=== PATIENT | female | born 1935 | race Caucasian/White ===

== ENCOUNTER → 2019-07-09 12:36 | Outpatient (CLI) | payer MEDICARE, SELFPAY ==
--- NOTE | ~2019-07-09 | XR_ITS ---
EXAMINATION: XR chest 2V DATE: 07/09/2019 12:50 INDICATION: Unspecified dementia without behavioral disturbance. TECHNIQUE: Frontal and lateral views of the chest were obtained. COMPARISON: Chest 2 views 07/01/2012 FINDINGS: The chest demonstrates clear lungs without pneumonia, pleural effusion, or pneumothorax. Th e heart size is normal. There are changes of posterior fusion procedure in lumbar spine. There are ch anges of ventral hernia repair. IMPRESSION: 1. No acute cardiopulmonary disease. Reviewed, dictated and finalized at location A. [employer]CHITECT
== END ==
PROVIDERS: PCP Family Medicine; Visit Provider Physician Assistant Medical
DX: F03.90 Unspecified dementia, unspecified severity, without behavioral disturbance, psychotic disturbance, mood disturbance, and anxiety (principal)
CPT/HCPCS: 71046

== ENCOUNTER → 2020-11-30 13:16 | Outpatient (CLI) | payer MEDICARE, SELFPAY ==
--- NOTE | ~2020-11-30 | DEXA_ITS ---
Bone Density Report Name: Shayy Haji Age: 85 Sex: Female Ethnicity: White Date of : 1935 Indication: osteopenia; height loss; postmenopausal Referring Provider: LINCOLN ESCOBAR Study: Bone densitometry was performed. Exam Date: November 30, 2020 Accession number: [id number] Bone Density: Region BMD T-score Z-score Classification AP Spine (L1, L2) 1.040 0.6 3.2 Normal Femoral Neck (Left) 0.563 -2.6 -0.1 Osteoporosis Total Hip (Left) 0.757 -1.5 0.8 Osteopenia Femoral Neck (Right) 0.645 -1.8 0.7 Osteopenia Total Hip (Right) 0.842 -0.8 1.5 Normal Total Hip Mean 0.800 -1.2 1.2 Osteopenia World Health Organization criteria for BMD impression classify patients as: Normal (T-score at or above -1.0), Osteopenia (T-score between -1.0 and -2.5), or Osteoporosis (T-score at or below -2.5). 10-year Fracture Risk: FRAX not reported because: Some T-score for Spine Total or Hip Total or Femoral Neck at or below -2.5 Previous Exams: Region Exam Age BMD T-score BMD Change BMD Change Date g/cm2 vs Baseline vs Previous AP Spine(L1, L2) 11/30/2020 85 1.040 0.6 0.111* 0.063* 05/14/2018 82 0.977 0.0 0.047* 0.019 03/12/2016 80 0.958 -0.2 0.028* -0.042* 07/01/2012 76 1.000 0.2 0.070* 0.070* 06/21/2008 72 0.930 -0.4 Total Hip(Left) 11/30/2020 85 0.757 -1.5 -0.110* 0.026 05/14/2018 82 0.731 -1.7 -0.136* -0.058* 03/12/2016 80 0.789 -1.3 -0.078* -0.067* 07/01/2012 76 0.856 -0.7 -0.011 -0.011 06/21/2008 72 0.867 -0.6 Total Hip(Right) 11/30/2020 85 0.842 -0.8 -0.046* 0.004 05/14/2018 82 0.838 -0.8 -0.050* -0.058* 03/12/2016 80 0.896 -0.4 0.008 -0.076* 07/01/2012 76 0.972 0.2 0.083* 0.083* 06/21/2008 72 0.889 -0.4 *Denotes significance at 95% confidence level, LSC for AP Spine = 0.022 g/cm2, LSC for Total Hip = 0.027 g/cm2 Clinical Information Provided by Patient: Has used the following medications: Vitamin D Patient maximum height was 60 Menopause Age: 51 Does not regularly consume dairy products Drinks caffeinated beverages Onset of menses at age 13 Number of children 6 Impression: The patient has osteoporosis, based on the Left Femoral Neck T-score. No significant bone loss
== END ==
PROVIDERS: PCP Family Medicine; Visit Provider Family Medicine
DX: M81.0 Age-related osteoporosis without current pathological fracture (principal); M85.851 Other specified disorders of bone density and structure, right thigh; M85.852 Other specified disorders of bone density and structure, left thigh
CPT/HCPCS: 77080

== ENCOUNTER → 2020-12-13 15:33 | Outpatient (CLI) | payer MEDICARE, SELFPAY ==
--- NOTE | ~2020-12-13 | MM_ITS ---
EXAMINATION: MM screening [facility] BI w stan HISTORY: Screening TECHNIQUE: Craniocaudal and mediolateral oblique 3-D tomosynthesis images were obtained and synthetic 2-D images were generated. CAD analysis was submitted and interpreted. COMPARISON: Comparison to multiple prior studies sequentially, with oldest reviewed study dated 04/26. BREAST PARENCHYMAL COMPOSITION: There are scattered areas of fibroglandular density. FINDINGS: There is no evidence of suspicious mass, calcification, or architectural distortion to sugg est malignancy in either breast. There has been no suspicious interval change. IMPRESSION: 1. No mammographic evidence of malignancy. 2. Recommend routine screening mammography in one year. BI-RADS Category 1: Negative Reviewed, dictated and finalized at location A.
== END ==
PROVIDERS: PCP Family Medicine; Visit Provider Physician Assistant
DX: Z12.31 Encounter for screening mammogram for malignant neoplasm of breast (principal)
CPT/HCPCS: 77063; 77067

== ENCOUNTER 2021-10-26 09:55 | Emergency (ER) | payer MEDICARE, SELFPAY ==
--- NOTE | ~2021-10-26 | CT_ITS ---
EXAMINATION: CT brain wo con DATE: 10/26/2021 11:07 INDICATION: Confusion TECHNIQUE: Computed tomography (CT) of the head was performed without intravenous contrast. The dose- length product was 605.33 mGy-cm. Automated exposure control and iterative reconstruction technique w ere employed. COMPARISON: None FINDINGS: No acute intracranial hemorrhage, infarction, mass or mass effect. No ventriculomegaly or m idline shift. Basilar cisterns are patent. No ventriculomegaly or midline shift. There is intracrania l atherosclerosis. Paranasal sinuses and mastoids are pneumatized. No depressed skull fractures. Stru ctures of the posterior fossa to are unremarkable. There is minimal intracranial atherosclerosis. The re are scattered mild periventricular and subcortical white matter changes, most likely related to sm all vessel ischemic disease (microangiopathy). IMPRESSION: 1. No acute intracranial abnormality. Reviewed, dictated and finalized at location A.
--- NOTE | ~2021-10-26 | XR_ITS ---
EXAMINATION: XR chest 2V DATE: 10/26/2021 10:29 INDICATION: Weakness. Woozy feeling. TECHNIQUE: frontal and lateral views of the chest were obtained. COMPARISON: Chest radiograph dated 07/09/2019 FINDINGS: The lungs remain clear with no focal airspace opacities, pulmonary edema, pleural effusion or pneumot horax. The cardiomediastinal silhouette is within normal limits for AP technique. Cholecystectomy cli ps in the right upper quadrant and metallic coils suggesting prior ventral hernia repair at the mid a bdomen. Moderate thoracic spondylosis. IMPRESSION: 1. No acute cardiopulmonary disease. Reviewed, dictated and finalized at location B.
[2021-10-26 10:11] VITALS: BP 187/54; PULSE 74; RESP 20; TEMP 36.3; O2SAT 98
--- NOTE | 2021-10-26 10:11 | ECG_ITS ---
Measurements Intervals [place] Rate: 67 P: -27 [place]: 131 QRS: -13 QRSD: 97 T: 16 QT: 412 QTc: 437 Interpretive Statements SINUS RHYTHM WITH MARKED SINUS ARRHYTHMIA MODERATE VOLTAGE CRITERIA FOR LVH, CONSIDER NORMAL VARIANT [MEETS CRITERIA IN ONE OF: R(aVL), S(V1), R(V5), R(V5/V6)+S(V1)] NONSPECIFIC ST ABNORMALITY BASELINE ARTIFACT BORDERLINE ECG NO PREVIOUS ECG AVAILABLE FOR COMPARISON Electronically Signed On 10-26-2021 17:49:25 CDT by Terry Patterson M.D.
[2021-10-26 10:19] VITALS: PULSE 64
[2021-10-26 10:26] LABS: Basophils Absolute Auto 0.1 K/mm3 (0.0-0.1); Basophils Percent Auto 0.8 % (0.2-1.2); Eosinophils Absolute Auto 0.1 K/mm3 (0-0.3); Eosinophils Percent Auto 1.4 % (0-4.4); Hematocrit 41.9 % (37.0-47.0); Hemoglobin 13.3 g/dL (12.0-15.0); Immature Granulocyte Absolute 0.02 K/mm3 (0.00-0.031); Immature Granulocyte Percent A 0.3 % (0-0.5); Lymphocytes Absolute Auto 2.03 K/mm3 (0.9-3.2); Lymphocytes Percent Auto 30.9 % (18.3-44.2); Mean Corpuscular HGB Conc 31.7 g/dl (32-36); Mean Corpuscular Volume 94.4 fl (80-100); Mean Platelet Volume 10.9 fl (7.4-10.4); Monocytes Absolute Auto 0.4 K/mm3 (0.1-0.6); Monocytes Percent Auto 6.4 % (2.6-8.5); Neutrophils Percent Auto 60.2 % (45.5-73.1); Platelet Count Result 289 k/mm3 (150-375); Red Blood Count 4.44 M/mm3 (4.2-5.4); White Blood Count 6.6 K/mm3 (4.5-10.0)
--- NOTE | 2021-10-26 10:53 | ED.WEAKNESS ---
HPI - Weakness General Chief complaint: Weakness Stated complaint: FATIGUED, MEMORY LOSS Time Seen by Provider: 10/26/21 10:26 History of Present Illness HPI Narrative: Pt presents with an episode of confusion and generalized weakness this morning that lasted about 30-40 minutes and resolved. Pt feels fine now. Pt denies CP or SOB or dysuria or frequency. Related Data Home Medications Medication Instructions Recorded Confirmed ascorbic acid (vitamin C) 1,000 mg 1,000 mg PO Q12H 06/30/19 11/24/20 tablet,extended release aspirin-caffeine 400 mg-32 mg 1 tablet PO Q6H PRN 06/30/19 11/24/20 tablet (Anacin) calcium carb 300 mg-D3 800 1 tablet PO DAILY 06/30/19 11/24/20 unit-mag ox 25 mg-endoscopy registered nurse 0.5 mg-yonis-Zn tablet (Caltrate + D3 Plus Minerals) famotidine 20 mg tablet (Pepcid) 20 mg PO DAILY 06/30/19 11/24/20 vitamin B complex (B 1 tablet PO DAILY 06/30/19 11/24/20 Complex-Vitamin B12 tablet) irbesartan 300 mg tablet 300 mg PO DAILY 09/16/20 11/24/20 spironolactone 25 mg tablet 25 mg PO DAILY 07/03/21 Allergies Allergy/AdvReac Type Severity Reaction Status Date / Time NKDA Allergy Unknown unkown Uncoded 11/24/20 13:13 Review of Systems Review of Systems: All systems reviewed & are unremarkable except as noted in HPI and below PMFSH Past Medical History Medical History Bilateral primary osteoarthritis of hip Bilateral primary osteoarthritis of knee (10/30/18) Cystocele Inconclusive mammogram due to dense breasts (05/14/18) Nonrheumatic aortic (valve) insufficiency Normal colonoscopy 2011 Normal nuclear stress test 2009 Peripheral neuropathy Sensory problems with limbs Spinal stenosis, lumbar region, with neurogenic claudication Family History Family History Father Diabetes mellitus Sibling Diabetes mellitus Carcinoma of colon Mother Diabetes mellitus Other Family history of glaucoma Social History Social History Alcohol intake: never Exam Const: General: healthy appearing, no acute distress and alert Nutritional Appearance: well nourished Orientation/consciousness: patient oriented x3 Limitations: no limitations HENMT: Head: normal to inspection Mouth: Yes Normal oral and palatal mucosa present Eyes: Conjunctivae: conjunctivae normal Pupils: Equal, round and reactive pupils present EOM: EOMs intact bilaterally Neck: Neck: normal visual inspection, no lymphadenopathy and no meningeal signs Chest: Chest palpation & inspection: normal inspection of the chest Resp: Effort & Inspection: normal respiratory effort Auscultation: clear to auscultation bilaterally Cardio: Rate: regular rate Rhythm: regular rhythm GI: GI Palp: Yes Soft to palpation Auscultation: normal bowel sounds Back/Spine/Pelvis: Back: no CVA tenderness Skin: General skin exam: normal color Rashes: no rashes Wounds: no wounds Neuro: General: patient oriented x3, moves all extremities, no meningeal signs, no focal motor deficits and CN's II-XI intact bilaterally Cranial nerves: Yes Nystagmus not present Speech: normal speech Gait exam (Neuro): Normal gait present Extrem: General: normal to inspection and no clubbing, cyanosis or edema Psych: Mental Status: mental status grossly normal Affect: normal affect Attitude: cooperative Course Vital Signs Vital signs: Vital Signs Temperature 97.4 F L 10/26/21 10:11 Pulse Rate 74 10/26/21 10:11 Respiratory Rate 20 10/26/21 10:11 Blood Pressure 187/54 H 10/26/21 10:11 Pulse Oximetry 98 10/26/21 10:11 Temperature 97.4 F L 10/26/21 10:11 Pulse Rate 65 10/26/21 13:49 Respiratory Rate 17 10/26/21 13:49 Blood Pressure 153/72 H 10/26/21 13:49 Pulse Oximetry 99 10/26/21 13:49 MDM - Weakness Lab Data Result diagrams:
[2021-10-26 11:12] LABS: Alanine Aminotransferase 15 U/L (6-35); Alkaline Phosphatase 76 U/L (38-126); Anion Gap 4 mmol/L (8-16); Aspartate Amino Transferase 38 U/L (14-36); Bilirubin,Total 0.5 mg/dL (0.2-1.3); Blood Urea Nitrogen 17 mg/dL (7-17); Calcium 8.9 mg/dL (8.4-10.2); Carbon Dioxide 30 mmol/L (22-30); Chloride 104 mmol/L (98-107); Estimated CRCL calculation 45 ml/min; Estimated Glomerular Filt Rate > 60; Glucose 116 mg/dL (65-110); Potassium 4.1 mmol/L (3.4-5.0); Sodium 138 mmol/L (137-145)
[2021-10-26 11:24] LABS: Troponin I < 0.012 ng/mL (0.000-0.034)
--- NOTE | 2021-10-26 11:34 | PC.NURSE ---
Patient walked to bathroom with assistance and is unable to give urine sample at this time, will attempt again later
[2021-10-26 11:35] VITALS: BP 151/53; PULSE 58; RESP 18; O2SAT 99
[2021-10-26 12:18] LABS: Appearance Urine Cloudy (Clear); Bilirubin Urine Negative (Negative); Blood Urine 1+ (Negative); Color Urine Yellow (Yellow); Glucose Urine UA Negative (Negative); Ketones Urine Negative (Negative); Leukocyte Esterase Ur 1+ LEU/UL (Negative); Nitrate Urine Positive (Negative); Protein Urine 1+ mg/dL (Negative); Specific Grav Ur 1.025 (1.001-1.035); Urobilinogen Urine 0.2 mg/dL (<2.0)
[2021-10-26 12:28] LABS: Bacteria Urine Trace /hpf; Mucus Urine Rare /lpf; Squamous Epithelial Cell Urine Many /hpf (Few); WBC Urine 0-3 /hpf
[2021-10-26 12:32] LABS: Add Urine Microscopic? YES
[2021-10-26 13:49] VITALS: BP 153/72; PULSE 65; RESP 17; O2SAT 99
== END 2021-10-26 14:02 | disposition home or self-care (01) ==
PROVIDERS: Emergency Provider Emergency Medicine; PCP Family Medicine
DX: R53.1 Weakness (principal); G62.9 Polyneuropathy, unspecified; M17.0 Bilateral primary osteoarthritis of knee; M16.0 Bilateral primary osteoarthritis of hip; Z79.82 Long term (current) use of aspirin; R94.31 Abnormal electrocardiogram [ECG] [EKG]
CPT/HCPCS: 36415; 70450; 71046; 80053; 81001; 84484; 85025; 93005; 99284

== ENCOUNTER 2021-11-10 12:08 | Outpatient (CLI) | payer MEDICARE, SELFPAY ==
--- NOTE | ~2021-11-10 | US_ITS ---
EXAMINATION: US carotid duplex BI DATE: 11/10/2021 13:15 INDICATION: Transient ischemic attack. TECHNIQUE: Grayscale, color Doppler, and pulsed Doppler images of the cervical carotid arteries were obtained. The degree of vessel stenosis is placed in one of the following categories: normal, <50%, 5 0-69%, >=70% but less than near-occlusion, near-occlusion, or total occlusion. Note that percent sten osis relative to normal distal artery lumen diameter is indirectly measured from velocity measurement s as described by Gulshan, et al. Radiology 2003; 229:340-346. COMPARISON: None. FINDINGS: RIGHT: The right common carotid artery (CCA) peak systolic velocity (PSV) is 62 cm/s. The right internal car otid artery (ICA) PSV is 55 cm/s. The right ICA end-diastolic velocity (EDV) is 10 cm/s. The right IC A/CCA PSV ratio is 0.9. Grayscale and color Doppler images yield an estimate of <50% diameter reducti on from plaque in the ICA. There is antegrade flow in the right vertebral artery. LEFT: The left CCA PSV is 68 cm/s. The left ICA PSV is 59 cm/s. The left ICA EDV is 11 cm/s. The left ICA/C CA PSV ratio is 0.9. Grayscale and color Doppler images yield an estimate of <50% diameter reduction from plaque in the ICA. There is antegrade flow in the left vertebral artery. IMPRESSION: 1. <50% stenosis in the right internal carotid artery. 2. <50% stenosis in the left internal carotid artery. Reviewed, dictated and finalized at location B.
== END 2021-11-10 12:09 | disposition home or self-care (01) ==
PROVIDERS: PCP Family Medicine; Visit Provider Family Medicine
DX: I65.23 Occlusion and stenosis of bilateral carotid arteries (principal)
CPT/HCPCS: 93880

== ENCOUNTER 2022-02-23 12:00 | Outpatient (CLI) | payer MEDICARE, SELFPAY ==
[2022-02-23 13:32] LABS: Anion Gap 14 mmol/L (8-16); Blood Urea Nitrogen 16 mg/dL (7-17); Calcium 9.7 mg/dL (8.4-10.2); Carbon Dioxide 28 mmol/L (22-30); Chloride 101 mmol/L (98-107); Estimated Glomerular Filt Rate > 60; Glucose 116 mg/dL (65-110); Potassium 5.3 mmol/L (3.4-5.0); Sodium 143 mmol/L (137-145)
== END 2022-02-23 12:01 | disposition home or self-care (01) ==
LOC: ANHSURGERY 12:09
PROVIDERS: Anesthesiology; PCP Family Medicine; Visit Provider Obstetrics & Gynecology
DX: Z01.818 Encounter for other preprocedural examination (principal); E11.9 Type 2 diabetes mellitus without complications
CPT/HCPCS: 36415; 80048

== ENCOUNTER 2022-02-28 00:44 | Day surgery (SDC) | payer MEDICARE, SELFPAY ==
[2022-02-21 11:10] VITALS: BMI 29.9
--- NOTE | 2022-02-21 11:22 | PC.NURSE ---
PRE-OP INSTRUCTIONS, PLEASE READ CAREFULLY Report to the Outpatient Waiting Room, entrance under the green pavilion located off [facility], at time _1045_ on date _02/28/22_. OR Time: _1245_. Time changes happen often and if your time is changed the preop area will call you the afternoon before. - You and your visitor will be asked to self-screen and do not enter if you have any COVID symptoms. - Only one visitor and NO children visitors are allowed at this time. - The patient visitor is requested to leave or wait in car when not with patient due to restrictions. - A mask is required within the hospital. Patients may have clear liquids (water, carbonated beverages, clear teas, apple juice) until 3 hours prior to surgery (0945 AM) with a maximum of 20 ounces. - No food from midnight until time of surgery Take the following medications with a SIP of water the morning of surgery: _DULOXETINE_ Medications to discontinue per physician _VITAMINS/SUPPLEMENTS 3 DAYS PRIOR TO SURGERY, Date to take last dose 02/24/22_ Please no make-up, nail bulgarian, hairspray, perfume, deodorant, or body powder the day of surgery. No jewelry (including any body piercings) or valuables the day of surgery, leave them at home. Please take a shower or bath the night before, or the morning of, surgery with an antibacterial soap. Wear comfortable, loose fitting clothing. - Jewelry must be removed prior to entering the operating room. Rings and piercings that are not removed may be cut off. - The hospital will not accept responsibility for valuables. - Please leave all valuables, including medications, at home the day of surgery. If you are going home after surgery, a licensed oil transport driver must drive you home. - NO public transportation without another adult. - We recommend that an adult stay with you for 24 hours following discharge. - We also recommend that you do not drive, make important decision, drink alcoholic beverages, or take any drugs that were not prescribed by your health care provider for at least 24 hours after your discharge time. Follow any additional instructions given to you from your surgeon. If you or anyone in your household have experienced Covid symptoms in the past week, please notify your surgeon or the nurse liaison at the phone number below for possible testing. Telephone instructions given to _PT'S DAUGHTER (TOBI)_and asked if any additional questions and then verbalized understanding. Patient advised to call surgeon office or pre surgery nurse liaison [phone] if any additional questions.
--- NOTE | 2022-02-27 14:22 | WPDANESEPPF ---
Anes - Initial Pre Proc Eval Procedure: Operation Date: 02/28/22 12:45 Proposed Procedures p Hysteroscopy Dilation and Curettage - Ruben Locke MD Date/Time: 02/27/22 14:22 Surgeon: Ruben Locke MD Pre Op Diagnosis: abnormal ultra sound, poss. uterine polyp Patient Data Age: 86 Gender: F Height: 1.52 m Weight: 69.62 kg Allergies Allergy/AdvReac Type Severity Reaction Status Date / Time nitrofurantoin AdvReac Intermediate Confusion Verified 02/28/22 10:50 [From Macrobid] Home Medications Medication Instructions Recorded Confirmed Type ascorbic acid (vitamin C) 1,000 mg 1,000 mg PO Q12H 06/30/19 02/21/22 History tablet,extended release calcium carb 300 mg-D3 800 1 tablet PO DAILY 06/30/19 02/21/22 History unit-mag ox 25 mg-helicopter pilot instructor 0.5 mg-yonis-Zn tablet (Caltrate + D3 Plus Minerals) famotidine 20 mg tablet (Pepcid) 20 mg PO DAILY 06/30/19 02/21/22 History vitamin B complex (B 1 tablet PO DAILY 06/30/19 02/21/22 History Complex-Vitamin B12 tablet) irbesartan 300 mg tablet 300 mg PO DAILY 09/16/20 02/21/22 History spironolactone 25 mg tablet 25 mg PO DAILY 07/03/21 02/21/22 History alendronate 70 mg tablet See Rx Instructions .Route 10/30/21 02/21/22 Rx .COMPLEX #12 tabs cholecalciferol (vitamin D3) 1,250 See Rx Instructions .Route 10/30/21 02/21/22 Rx mcg (50,000 unit) capsule .COMPLEX #6 caps amlodipine 5 mg tablet 5 mg PO DAILY 11/01/21 02/21/22 History metformin 500 mg tablet,extended See Rx Instructions .Route 12/19/21 02/21/22 Rx release 24 hr .COMPLEX #90 tabs duloxetine 30 mg capsule,delayed 60 mg PO .COMPLEX #180 ea 01/04/22 02/21/22 Rx release latanoprost 0.005 % eye drops 1 drp EACH EYE DAILY 01/04/22 02/21/22 History simvastatin 10 mg tablet See Rx Instructions .Route 01/16/22 02/21/22 Rx .COMPLEX #90 tabs ECG: Date of Service: 10/26/21 Procedure(s): CA 12 lead EKG Accession Number(s): [id number] cc: ~ ? Measurements Intervals? [place]? Rate: ? 67 ? P:? -27 UT: ? 131? QRS:? -13 QRSD: ? 97 ? T:? 16 QT: ? 412? QTc:? 437? Interpretive Statements SINUS RHYTHM WITH MARKED SINUS ARRHYTHMIA MODERATE VOLTAGE CRITERIA FOR LVH, CONSIDER NORMAL VARIANT? [MEETS CRITERIA IN ONE OF: R(aVL), S(V1), R(V5), R(V5/V6)+S(V1)] NONSPECIFIC ST ABNORMALITY BASELINE ARTIFACT BORDERLINE ECG NO PREVIOUS ECG AVAILABLE FOR COMPARISON Electronically Signed On 10-26-2021 17:49:25 CDT by Terry Patterson M.D. Patient hx anesthesia problems: none Family hx anesthesia problems: none Results Review: All pre-operative results and documents have been reviewed as part of the pre-operative evaluation. [facility] Past Medical History Medical History (Updated 02/28/22 @ 11:55 by Ruben Locke MD) Aortic regurgitation Bilateral primary osteoarthritis of hip Bilateral primary osteoarthritis of knee (10/30/18) Class 1 obesity with body mass index (BMI) of 31.0 to 31.9 in adult Cystocele Essential hypertension History of abdominal hernia History of spinal stenosis Inconclusive mammogram due to dense breasts (05/14/18) Major depression, recurrent, chronic Microcytic anemia Mild dementia Mixed hyperlipidemia Neuropathy, lumbosacral (radicular) Nonrheumatic aortic (valve) insufficiency Normal colonoscopy 2011 Normal nuclear stress test 2009 Peripheral neuropathy Sensory problems with limbs Spinal stenosis, lumbar region, with neurogenic claudication TIA (transient ischemic attack) Surgical History Surgical History History of cholecystectomy Family History Family History Father D
[2022-02-28] MEDS: ACETAMINOPHEN 500 MG TABLET 1000 MG PO (10:56)
[2022-02-28 11:02] VITALS: BP 159/61; PULSE 65; RESP 16; TEMP 36.4; O2SAT 100
[2022-02-28] MEDS: LACTATED RINGERS 1,000 ML 30 ML IV CONT (11:22)
--- NOTE | 2022-02-28 11:46 | PM.IMHP ---
H&P: HPI History of Present Illness Date/Time: 02/28/22 11:46 Chief Complaint: Abnormal ultrasound. Narrative: 86 y/o with pelvic organ prolapse. She is scheduled for surgery with Dr. Urena. However, a preop pelvic ultrasound showed a thickened endometrial complex. She has no vaginal bleeding. Review of Systems Review of Systems: All systems reviewed & are unremarkable except as noted in HPI and below PMFSH Past Medical History Medical History (Updated 02/28/22 @ 11:55 by Ruben Locke MD) Aortic regurgitation Bilateral primary osteoarthritis of hip Bilateral primary osteoarthritis of knee (10/30/18) Class 1 obesity with body mass index (BMI) of 31.0 to 31.9 in adult Cystocele Essential hypertension History of abdominal hernia History of spinal stenosis Inconclusive mammogram due to dense breasts (05/14/18) Major depression, recurrent, chronic Microcytic anemia Mild dementia Mixed hyperlipidemia Neuropathy, lumbosacral (radicular) Nonrheumatic aortic (valve) insufficiency Normal colonoscopy 2011 Normal nuclear stress test 2009 Peripheral neuropathy Sensory problems with limbs Spinal stenosis, lumbar region, with neurogenic claudication TIA (transient ischemic attack) Surgical History Surgical History History of cholecystectomy Family History Family History Father Diabetes mellitus Sibling Diabetes mellitus Carcinoma of colon Mother Diabetes mellitus Other Family history of glaucoma Social History Social History Smoking status: Never smoker Second hand tobacco smoke exposure: No Alcohol intake: never Substance use: never Substance use type: does not use Living arrangements: alone Spiritual care concerns: No Meds Home Medications and Allergies Home Medications Medication Instructions Recorded Confirmed Type ascorbic acid (vitamin C) 1,000 mg 1,000 mg PO Q12H 06/30/19 02/21/22 History tablet,extended release calcium carb 300 mg-D3 800 1 tablet PO DAILY 06/30/19 02/21/22 History unit-mag ox 25 mg-gyroscope repairer 0.5 mg-yonis-Zn tablet (Caltrate + D3 Plus Minerals) famotidine 20 mg tablet (Pepcid) 20 mg PO DAILY 06/30/19 02/21/22 History vitamin B complex (B 1 tablet PO DAILY 06/30/19 02/21/22 History Complex-Vitamin B12 tablet) irbesartan 300 mg tablet 300 mg PO DAILY 09/16/20 02/21/22 History spironolactone 25 mg tablet 25 mg PO DAILY 07/03/21 02/21/22 History alendronate 70 mg tablet See Rx Instructions .Route 10/30/21 02/21/22 Rx .COMPLEX #12 tabs cholecalciferol (vitamin D3) 1,250 See Rx Instructions .Route 10/30/21 02/21/22 Rx mcg (50,000 unit) capsule .COMPLEX #6 caps amlodipine 5 mg tablet 5 mg PO DAILY 11/01/21 02/21/22 History metformin 500 mg tablet,extended See Rx Instructions .Route 12/19/21 02/21/22 Rx release 24 hr .COMPLEX #90 tabs duloxetine 30 mg capsule,delayed 60 mg PO .COMPLEX #180 ea 01/04/22 02/21/22 Rx release latanoprost 0.005 % eye drops 1 drp EACH EYE DAILY 01/04/22 02/21/22 History simvastatin 10 mg tablet See Rx Instructions .Route 01/16/22 02/21/22 Rx .COMPLEX #90 tabs Allergies Allergy/AdvReac Type Severity Reaction Status Date / Time nitrofurantoin AdvReac Intermediate Confusion Verified 02/28/22 10:50 [From Macrobid] Vital Signs Vital Signs - 24 hr 02/28/22 11:02 Temperature 36.4 C Pulse Rate 65 Respiratory Rate 16 Blood Pressure 159/61 H Pulse Oximetry 100 Oxygen Delivery Room Air Exam Const: Orientation/consciousness: patient oriented x3 Other: Well-developed, well-nourished female in no acute distress. Neck: Thyroid: thyroid normal Lymphatic: no lymphadenopathy noted (in neck, axilla or inguinal nodes) Resp: Effort & Inspection: normal respiratory effort Auscultation: clear to auscul
--- NOTE | 2022-02-28 13:16 | WPDHPUPDATE1 ---
History and Physical Update Update Date/Time: 02/28/22 13:16 History and Physical has been reviewed, including an updated exam of the patient. There are NO changes in the patient's condition. Risks, benefits, and alternatives have been discussed and questions answered. Patient agrees to proceed with procedure.
[2022-02-28] MEDS: LIDOCAINE HCL 1% PF 30 ML VIAL 10 ML INFILTRATE (13:43)
--- NOTE | 2022-02-28 14:01 | W.PM.PROC2 ---
Procedure Note - Detailed Date of Procedure 02/28/22 Pre-op Diagnosis Abnormal pelvic ultrasound Post-op Diagnosis Same Procedure Performed Hysteroscopy Dilation and sharp curettage Surgeon Ruben Locke MD Anesthesia MAC and Local (1% lidocaine paracervical block) Findings Irregular endometrium, though scant curettings obtained. Both tubal ostia seen. Description of Procedure The patient was taken to the operating room where she was prepared and draped in the usual sterile fashion in the dorsal lithotomy position. The bladder was drained with a red rubber catheter. A sterile speculum was placed into the vagina. The anterior lip of the cervix was grasped with single-tooth tenaculum. Ten mL of 1% lidocaine was administered in a paracervical block. The cervix was then gently dilated using Hegar dilators until an 8 mm dilator could be passed. Hysteroscopy was performed using sterile saline as a distention medium. Findings are as noted above. Sharp curettage was then performed, and endometrial curettings were collected on a Telfa pad and passed off to be sent to pathology. Hemostasis was excellent. Sponge, lap, needle and instrument counts were correct. The patient was awakened and taken to the recovery room in stable condition. I was present and scrubbed through the entire procedure. Implants None Estimated Blood Loss 5 Drains No Packing No Pathology Yes (Endometrial curettings) Complications None Condition Stable Disposition PACU
[2022-02-28 14:05] VITALS: BP 144/58; PULSE 54; RESP 14; O2SAT 100
[2022-02-28 14:11] LABS: Glucose Point of Care 86 mg/dl (65-105)
[2022-02-28 14:30] VITALS: BP 159/60; PULSE 56; RESP 14; O2SAT 99
[2022-02-28 15:00] VITALS: BP 162/64; PULSE 58; RESP 14
== END 2022-02-28 15:15 | disposition home or self-care (01) ==
PROVIDERS: PCP Family Medicine; Visit Provider Obstetrics & Gynecology
PROC: 0U5B8ZZ Destruction of Endometrium, Via Natural or Artificial Opening Endoscopic (ICD-10-PCS; CPT 58563; principal; 2022-02-28 12:45)
DX: N84.1 Polyp of cervix uteri (principal); N81.4 Uterovaginal prolapse, unspecified; F03.90 Unspecified dementia, unspecified severity, without behavioral disturbance, psychotic disturbance, mood disturbance, and anxiety; G62.9 Polyneuropathy, unspecified; I10 Essential (primary) hypertension; F32.A Depression, unspecified; E78.2 Mixed hyperlipidemia; Z86.73 Personal history of transient ischemic attack (TIA), and cerebral infarction without residual deficits; Z79.84 Long term (current) use of oral hypoglycemic drugs; E66.9 Obesity, unspecified; Z68.30 Body mass index [BMI] 30.0-30.9, adult
CPT/HCPCS: 58558; 36415; 80048; 82948; 88305; A9270; J2405; J2704; J3010; J7120

== ENCOUNTER 2022-12-24 20:26 | Outpatient (NON) | payer MEDICARE, SELFPAY | END 2022-12-24 20:27 | disposition home or self-care (01) | PROVIDERS: PCP Family Medicine; Visit Provider Nurse Practitioner Family | DX: R39.9 Unspecified symptoms and signs involving the genitourinary system (principal) | CPT/HCPCS: 87086 ==

== ENCOUNTER 2023-04-29 11:03 | Emergency (ER) | payer MEDICARE, SELFPAY ==
[2023-04-29] VITALS (7 sets, daily range): BP systolic 144–172; BP diastolic 47–83; PULSE 60–69; RESP 16–18; TEMP 36.4; O2SAT 98–100
--- NOTE | ~2023-04-29 | XR_ITS ---
EXAMINATION: XR chest 1V portable 04/29/2023 14:24 INDICATION: Syncope. Weakness. PROCEDURE: 2 view chest COMPARISON: Comparison to multiple prior studies sequentially, with oldest reviewed study dated 09/07. FINDINGS: The lungs are clear. The cardiomediastinal silhouette is within normal limits. There are no pleural effusions. There is no pneumothorax suspected. IMPRESSION: 1: NO ACUTE CARDIOPULMONARY DISEASE. Reviewed, dictated and finalized at location [facility]
--- NOTE | 2023-04-29 13:56 | ECG_ITS ---
Measurements Intervals [place] Rate: 61 P: 10 NE: 165 QRS: -18 QRSD: 92 T: 3 QT: 374 QTc: 377 Interpretive Statements SINUS RHYTHM POOR R-WAVE PROGRESSION LEFT VENTRICULAR HYPERTROPHY AND ST-T CHANGE [VOLTAGE CRITERIA PLUS ST/T ABNORMALITY] ABNORMAL ECG COMPARED TO ECG 10/26/2021 10:15:52 NO SIGNIFICANT CHANGES Electronically Signed On 04-29-2023 15:30:18 [employer]OPE MAKER by Merlin Bradley M.D.
--- NOTE | 2023-04-29 13:57 | ED.GENADULT ---
HPI - General Adult General Chief complaint: Unspecified <Shakira Mckay PA-C - Last Filed: 04/29/23 14:02> Stated complaint: Syncope <Shakira Mckay PA-C - Last Filed: 04/29/23 14:02> Time Seen by Provider: 04/29/23 14:13 <Shakira Mckay PA-C - Last Filed: 04/29/23 14:02> History of Present Illness HPI narrative: 87-year-old female with a history of aortic regurgitation, hypertension, TIA, diabetes, hyperlipidemia reports for evaluation with her daughters at bedside for syncopal episode that occurred today. Patient states that she woke up this morning and felt weird, then syncopized. The daughter is at bedside and witnessed the event. States the patient sat up in bed and states ?I feel weird? and then passed out for few seconds. She then woke up. No seizure-like activity. Patient denied chest pain or shortness of breath prior to syncopal episode. Family does endorse that the patient has had multiple episodes of diarrhea daily for the past 2 weeks is concerned she is dehydrated. She was recently treated for a UTI with an antibiotic and then shook the course last week. She denies abdominal pain, nausea or vomiting, melena or hematochezia, vision changes or focal numbness or weakness, dysuria or hematuria. <Shakira Mckay PA-C - Last Filed: 04/29/23 14:02> Related Data Home medications: Home Medications Medication Instructions Recorded Confirmed vitamin B complex (B 1 tablet PO DAILY 06/30/19 04/11/23 Complex-Vitamin B12 tablet) irbesartan 300 mg tablet 300 mg PO DAILY 09/16/20 04/11/23 amlodipine 5 mg tablet 5 mg PO DAILY 11/01/21 04/11/23 latanoprost 0.005 % eye drops 1 drp EACH EYE DAILY 01/04/22 04/11/23 ascorbic acid (vitamin C) 1,000 mg 1,000 mg PO DAILY 01/10/23 04/11/23 tablet,extended release polyethylene glycol 3350 17 17 g PO DAILY 01/10/23 04/11/23 gram/dose oral powder (Miralax) <Shakira Mckay PA-C - Last Filed: 04/29/23 14:02> Allergies/adverse reactions: Allergies Allergy/AdvReac Type Severity Reaction Status Date / Time nitrofurantoin AdvReac Intermediate Confusion Verified 04/29/23 11:27 [From Macrobid] memantin AdvReac Severe Nausea and Uncoded 04/29/23 11:27 Vomiting <Shakira Mckay PA-C - Last Filed: 04/29/23 14:02> Review of Systems Review of Systems: CONSTITUTIONAL: Denies fever, chills, or sweats. EYES: Denies visual changes, redness, or discharge. ENT: Denies rhinorrhea, congestion, sore throat, or otalgia. CARDIOVASCULAR: Denies chest pain, palpitations, or edema. RESPIRATORY: Denies cough or dyspnea. GASTROINTESTINAL: Denies abdominal pain, nausea, vomiting, or diarrhea. GENITOURINARY: Denies dysuria or hematuria. SKIN: Denies rash or itching. MUSCULOSKELETAL: Denies back pain, joint pain, or myalgia. NEUROLOGIC: Denies headache, numbness, or weakness. PSYCHIATRIC: Denies anxiety or depression. <Shakira Mckay PA-C - Last Filed: 04/29/23 14:02> [facility] Past Medical History Medical History: Medical History Aortic regurgitation Bilateral primary osteoarthritis of hip Bilateral primary osteoarthritis of knee (10/30/18) Cystocele Essential hypertension History of abdominal hernia History of spinal stenosis Inconclusive mammogram due to dense breasts (05/14/18) Major depression, recurrent, chronic Microcytic anemia Mild dementia Mixed hyperlipidemia Neuropathy, lumbosacral (radicular) Nonrheumatic aortic (valve) insufficiency Normal colonoscopy 2011 Normal nuclear stress test 2009 Peripheral neuropathy Prolapse of female pelvic organs Prolapse of female pelvic organs Radicular pain Sensory problems with limbs Spinal stenosis, lumbar region, with neurogenic claudication TIA (transient ischemic attack) Urinary tract infection symptoms <Shakira Mckay PA-C - Last Filed: 04/29/23 14:02> Surgical History Surgical History: Kyle[facility]
[2023-04-29 14:18] LABS: Basophils Percent Auto 0.6 % (0.2-1.2); Eosinophils Absolute Auto 0.1 K/mm3 (0-0.3); Eosinophils Percent Auto 0.7 % (0-4.4); Hematocrit 40.3 % (37.0-47.0); Hemoglobin 13.3 g/dL (12.0-15.0); Immature Granulocyte Absolute 0.03 K/mm3 (0.00-0.031); Immature Granulocyte Percent A 0.4 % (0-0.5); Lymphocytes Absolute Auto 2.59 K/mm3 (0.9-3.2); Lymphocytes Percent Auto 37.2 % (18.3-44.2); Mean Corpuscular Hemoglobin 30.5 pg (26-34); Mean Corpuscular Volume 92.4 fl (80-100); Mean Platelet Volume 11.2 fl (7.4-10.4); Monocytes Absolute Auto 0.4 K/mm3 (0.1-0.6); Monocytes Percent Auto 5.9 % (2.6-8.5); Neutrophils Absolute Auto 3.9 K/mm3 (1.3-6.7); Neutrophils Percent Auto 55.2 % (45.5-73.1); Platelet Count Result 307 k/mm3 (150-375); Red Blood Count 4.36 M/mm3 (4.2-5.4)
[2023-04-29 14:30] LABS: Alanine Aminotransferase 19 U/L (6-35); Albumin Level 3.7 g/dL (3.5-5.1); Alkaline Phosphatase 66 U/L (38-126); Anion Gap 6 mmol/L (8-16); Aspartate Amino Transferase 29 U/L (14-36); Bilirubin,Total 0.5 mg/dL (0.2-1.3); Blood Urea Nitrogen 9 mg/dL (7-17); Calcium 9.1 mg/dL (8.4-10.2); Carbon Dioxide 33 mmol/L (22-30); Chloride 100 mmol/L (98-107); Estimated CRCL calculation 41 ml/min; Estimated Glomerular Filt Rate > 60; Glucose 142 mg/dL (65-110); Magnesium 1.3 mg/dL (1.6-2.3); Potassium 3.3 mmol/L (3.4-5.0); Sodium 139 mmol/L (137-145)
[2023-04-29 14:41] LABS: NT Pro B Type Natriuretic Pept 505 pg/mL (19.9-100); Troponin I < 0.012 ng/mL (0.000-0.034)
[2023-04-29] MEDS: SODIUM CHLORIDE 0.9% IV 1,000 ML 999 ML IV CONT (15:05)
[2023-04-29] MEDS: MAGNESIUM SULF 1 GM/D5W 100 ML 1 GM/100 ML BAG IVPB (16:12)
[2023-04-29 16:40] LABS: Appearance Urine Clear (Clear); Bacteria Urine None Seen /hpf; Bilirubin Urine Negative (Negative); Blood Urine Trace (Negative); Color Urine Yellow (Yellow); Glucose Urine UA Negative (Negative); Ketones Urine Negative (Negative); Leukocyte Esterase Ur Negative LEU/UL (Negative); Need Manual Microscopic Reviewed; Nitrate Urine Negative (Negative); Non Pathogenic Casts 0-2; Protein Urine Negative (Negative); RBC Urine 0-2 /hpf (0-2); Specific Grav Ur 1.002 (1.001-1.035); Squamous Epithelial Cell Urine None seen /hpf (Few); Urobilinogen Urine 0.2 mg/dL (<2.0); WBC Urine 0-5 /hpf
[2023-04-29 16:45] LABS: Add Urine Microscopic? YES
--- NOTE | 2023-04-29 17:57 | PC.NURSE ---
1735: pt ambulated with walker and stand by assist to BR without c/o dizziness, syncope or nausea.
== END 2023-04-29 17:59 | disposition home or self-care (01) ==
PROVIDERS: Physician Assistant; Emergency Provider Emergency Medicine; PCP Family Medicine
DX: R55 Syncope and collapse (principal); F03.90 Unspecified dementia, unspecified severity, without behavioral disturbance, psychotic disturbance, mood disturbance, and anxiety; I35.1 Nonrheumatic aortic (valve) insufficiency; I10 Essential (primary) hypertension; E11.42 Type 2 diabetes mellitus with diabetic polyneuropathy; E78.2 Mixed hyperlipidemia; M16.9 Osteoarthritis of hip, unspecified; M17.9 Osteoarthritis of knee, unspecified; Z86.73 Personal history of transient ischemic attack (TIA), and cerebral infarction without residual deficits; Z86.2 Personal history of diseases of the blood and blood-forming organs and certain disorders involving the immune mechanism; Z87.440 Personal history of urinary (tract) infections; Z90.49 Acquired absence of other specified parts of digestive tract; I51.7 Cardiomegaly; Z79.84 Long term (current) use of oral hypoglycemic drugs
CPT/HCPCS: 36415; 71045; 80053; 81001; 83735; 83880; 84484; 85025; 93005; 96361; 96365; 99284; J3475; J7030

== ENCOUNTER 2024-02-27 12:52 | Outpatient (CLI) | payer MEDICARE, SELFPAY ==
--- NOTE | 2024-02-28 07:17 | WPDSIXMINUTE ---
Six Minute Walk Procedure Procedure Performed Pulmonary Stress Test (6 min walk) Six Minute Walk Six Minute Walk: This is a 6 minute walk test. The test was performed and interpreted in accordance with the 2014 ERS/ATS task force guidelines. Of note, patient used a wheeled walker during the testing. Findings: The patient's resting room air oxygen saturation measured by pulse oximetry was 97%, the heart rate was 71 bpm, and the modified Jeanine dyspnea score was 0. Patient ambulated for 122 meters and oxygen saturation remained 94 to 97%. At the end of the study the heart rate was 96 bpm and the modified Jeanine dyspnea score was 1. The patient did not qualify for supplemental oxygen at rest or with ambulation. There are no prior studies for comparison.
== END 2024-02-27 12:53 | disposition home or self-care (01) ==
LOC: ANHPFT 12:55
PROVIDERS: PCP Family Medicine; Visit Provider Family Medicine
DX: R06.00 Dyspnea, unspecified (principal); G47.34 Idiopathic sleep related nonobstructive alveolar hypoventilation
CPT/HCPCS: 94618